=== PATIENT | male | born 1970 | race Caucasian/White ===

== ENCOUNTER 2017-04-12 10:18 | Emergency (ER) | payer OTHER ==
[~2017-04-12] VITALS: Ht 188 cm; Wt 100.5 kg
[2017-04-12 10:22] VITALS: TEMP 97.2
[2017-04-12] MEDS ORDERED: ALLEGRA 180MG180 MG PO (10:44)
[2017-04-12] MEDS ORDERED: CYANOCOBAL1000 MCG/2 IM (10:48)
[2017-04-12] MEDS ORDERED: ZOLOFT 100MG100 MG PO (10:48)
[2017-04-12] MEDS ORDERED: VITAMIN D32000 I1 PO (10:48)
[2017-04-12] MEDS ORDERED: LIDODERM 5% PATC1 EA TP (10:49)
[2017-04-12] MEDS ORDERED: PRILOSEC 20MG20 MG PO (10:49)
[2017-04-12 11:20] LABS: INR 1.1 (0.8-3.0); PROTHROMBIN TIME 12.3 SECONDS (9.7-12.8)
[2017-04-12 11:23] LABS: PARTIAL THROMBOPLASTIN TIME 30.5 SECONDS (26.0-37.0)
[2017-04-12 11:24] LABS: ALANINE AMINOTRANSFERASE 28 U/L (21-72); ALBUMIN 4.1 gm/dL (3.5-5.0); ALKALINE PHOSPHATASE 97 U/L (50-136); ANION GAP 12 mmol/L (7-16); BLOOD UREA NITROGEN 14 mg/dL (9-20); CALCIUM 9.1 mg/dL (8.4-10.2); CARBON DIOXIDE 23 mmol/L (22-30); CHLORIDE 104 mmol/L (98-107); CREATININE, serum 0.95 mg/dL (0.66-1.25); GLUCOSE 97 mg/dL (74-106); POTASSIUM 3.9 mmol/L (3.4-5.0); SODIUM 138 mmol/L (137-145); TOTAL PROTEIN 7.3 gm/dL (6.4-8.2)
[2017-04-12 11:33] LABS: BASO # 0.1 (0.0-0.2); EOS # 0.2 (0.0-0.7); GRAN # 3.8 (1.4-6.5); GRAN % 57.2 % (42.2-75.2); HEMATOCRIT 40.9 % (42.0-52.0); HEMOGLOBIN 14.2 g/dl (13.5-18.0); LYMPH # 1.9 (1.2-3.4); LYMPH % 28.5 % (20.0-51.0); MEAN CELL VOLUME 87 fl (80.0-100.0); MEAN CORPUSCULAR HEMOGLOBIN 30 pg (27.0-31.0); MEAN CORPUSCULAR HGB CONC 35 g/dl (33.0-37.0); MEAN PLATELET VOLUME 10.1 fl (7.4-10.4); MONO # 0.6 (0.1-0.6); MONO % 9.6 % (1.7-9.3); PLATELET COUNT 265 K/mm3 (130-400); RED BLOOD COUNT 4.68 M/mm3 (4.20-5.60); REDCELL DISTRIBUTION WIDTH-CV 13.2 % (11.5-14.5); WHITE BLOOD COUNT 6.7 K/mm3 (4.8-10.8)
[2017-04-12 11:34] LABS: TROPONIN-I < 0.012 ng/mL (0.000-0.034)
[2017-04-12 13:37] VITALS: BP 138/89; PULSE 70
== END 2017-04-12 13:37 | disposition home or self-care (01) ==
LOC: COL.ER 10:18
PROVIDERS: Family Medicine
DX: K80.50 Calculus of bile duct without cholangitis or cholecystitis without obstruction (principal); R07.9 Chest pain, unspecified; F17.210 Nicotine dependence, cigarettes, uncomplicated

== ENCOUNTER 2018-01-12 18:19 | Emergency (ER) | payer OTHER ==
[~2018-01-12] VITALS: Ht 188 cm; Wt 101.4 kg
[~2018-01-12 18:19] MED LIST: ALLEGRA 180MG180 MG PO; CYANOCOBAL1000 MCG/2 IM; LIDODERM 5% PATC1 EA TP; PRILOSEC 20MG20 MG PO; VITAMIN D32000 I1 PO; ZOLOFT 100MG100 MG PO
[2018-01-12 18:24] VITALS: BP 145/95; TEMP 98.8
[2018-01-12] MEDS ORDERED: LEXAPRO 10MG10 MG PO (19:02)
[2018-01-12 19:40] VITALS: PULSE 82
== END 2018-01-12 19:40 | disposition home or self-care (01) ==
LOC: COL.ER 18:19
DX: K40.90 Unilateral inguinal hernia, without obstruction or gangrene, not specified as recurrent (principal); Z90.49 Acquired absence of other specified parts of digestive tract